=== PATIENT | male | born 1960 | race Caucasian/White ===

== ENCOUNTER 2016-11-17 07:43 | Outpatient (CLI) | payer OTHER | END 2016-11-17 20:18 | disposition home or self-care (01) | LOC: SUS 07:43 | PROVIDERS: ATTEND Internal Medicine | DX: N28.1 Cyst of kidney, acquired (principal) | CPT/HCPCS: 76700-TC ==

== ENCOUNTER 2018-11-29 08:25 | Outpatient (CLI) | payer BC | END 2018-11-29 21:12 | disposition home or self-care (01) | LOC: SRD 08:25 | PROVIDERS: ATTEND Internal Medicine | DX: M47.812 Spondylosis without myelopathy or radiculopathy, cervical region (principal); M17.0 Bilateral primary osteoarthritis of knee | CPT/HCPCS: 72050-TC ==